=== PATIENT | female | born 1940 | race Asian ===

== ENCOUNTER 2018-08-12 15:13 | Inpatient (IN) | payer OTHER ==
[2018-08-12 15:45] LABS: ADD MAN DIFF? NO
[2018-08-12 15:52] LABS: WHITE BLOOD COUNT 9.8 10^3/ul (4.8-10.8)
[2018-08-12 15:52] LABS: BASOPHIL # 0.1 10^3/ul (0.0-0.1); BASOPHILS % 0.6 % (0.0-2.0); EOSINOPHILS # 0.1 10^3/ul (0.0-0.5); EOSINOPHILS % 0.8 % (0.0-7.0); HEMATOCRIT 37.6 % (37.0-47.0); HEMOGLOBIN 11.9 g/dl (12.0-16.0); LYMPHOCYTES # 0.8 10^3/ul (0.8-2.9); LYMPHOCYTES % 8.4 % (15.0-51.0); MEAN CORPUSCULAR HEMOGLOBIN 29.2 pg (29.0-33.0); MEAN CORPUSCULAR HGB CONC 31.6 g/dl (32.0-37.0); MEAN CORPUSCULAR VOLUME 92.4 fl (82.0-101.0); MEAN PLATELET VOLUME 9.9 fl (7.4-10.4); MONOCYTE # 0.7 10^3/ul (0.3-0.9); MONOCYTES % 6.8 % (0.0-11.0); NEUTROPHIL # 8.1 10^3/ul (1.6-7.5); NEUTROPHILS % 82.5 % (39.0-77.0); NUCLEATED RED BLOOD CELLS% 0.2 /100WBC (0.0-0.0); PLATELET COUNT 567 10^3/UL (140-415); RED BLOOD COUNT 4.07 10^6/ul (4.20-5.40); RED CELL DISTRIBUTION WIDTH 14.6 % (11.5-14.5)
[2018-08-12] MEDS: CEFEPIME 2GM/50 ML (PMX) 50 ML IVPB (15:52)
[2018-08-12] MEDS: SODIUM CHLORIDE 0.9% 1L BAG IV* (15:52)
[2018-08-12 16:05] LABS: ADD UMIC YES; UR ASCORBIC ACID NEGATIVE (NEGATIVE); UR BILIRUBIN (Dip) NEGATIVE (NEGATIVE); UR BLOOD (Dip) NEGATIVE (NEGATIVE); UR CLARITY CLOUDY (CLEAR); UR COLOR AMBER (YELLOW); UR GLUCOSE (Dip) NEGATIVE (NEGATIVE); UR HYALINE CAST FEW /HPF (NONE SEEN); UR KETONES (Dip) TRACE mg/dL (NEGATIVE); UR LEUKOCYTE ESTERASE (Dip) NEGATIVE Leu/ul (NEGATIVE); UR MUCUS FEW /HPF (NONE SEEN); UR NITRITE (Dip) NEGATIVE (NEGATIVE); UR RBC 2 /HPF (0-5); UR SPECIFIC GRAVITY (Dip) 1.021 (1.003-1.030); UR SQUAMOUS EPITHELIAL CELL FEW /HPF (FEW); UR TOTAL PROTEIN (Dip) NEGATIVE (NEGATIVE); UR UROBILINOGEN (Dip) 2+ mg/dL (NEGATIVE); UR WBC 6 /HPF (0-5)
[2018-08-12 16:08] LABS: ALANINE AMINOTRANSFERASE 34 IU/L (13-69); ALBUMIN 3.7 g/dl (3.3-4.9); ALBUMIN/GLOBULIN RATIO 0.92; ALKALINE PHOSPHATASE 96 IU/L (42-121); ANION GAP 12 (5-13); ASPARTATE AMINO TRANSFERASE 42 IU/L (15-46); BILIRUBIN,INDIRECT 0.3 mg/dl (0-1.1); BILIRUBIN,TOTAL 0.3 mg/dl (0.2-1.3); BLOOD UREA NITROGEN 41 mg/dl (7-20); CALCIUM 9.5 mg/dl (8.4-10.2); CARBON DIOXIDE 26 mmol/L (21-31); CHLORIDE 109 mmol/L (97-110); CREATININE 1.35 mg/dl (0.44-1.00); GLUCOSE 128 mg/dl (70-220); POTASSIUM 3.7 mmol/L (3.5-5.1); SODIUM 147 mmol/L (135-144); TOTAL PROTEIN 7.7 g/dl (6.1-8.1)
[2018-08-12 16:20] LABS: TROPONIN-I 0.078 ng/ml (0.000-0.120)
[2018-08-12] MEDS: VANCOMYCIN 1 GM (PMX) 250 ML IVPB (16:34)
[2018-08-12] MEDS ORDERED: NACL 0.9% 3 ML SYG IV (18:30)
[2018-08-12] MEDS ORDERED: ACETAMINOPHEN 325 MG TAB PO (19:00)
[2018-08-12] MEDS ORDERED: ONDANSETRON 4 MG INJ IV (19:00)
[2018-08-12 21:33] LABS: LACTIC ACID 1.1 mmol/L (0.5-2.0)
[2018-08-12] MEDS: GABAPENTIN 300 MG CAP PO (23:00)
[2018-08-12] MEDS: ATORVASTATIN 20 MG TAB PO (23:00)
[2018-08-12] MEDS ORDERED: IPRATROPIUM (NEB) 0.5 MG/2.5 ML AMP HHN (23:30)
[2018-08-12] MEDS ORDERED: LEVALBUTEROL (NEB) 1.25 MG/0.5 ML AMP HHN (23:30)
[2018-08-13 00:14] LABS: AADO2 Arterial 81.4 mmHg (7.0-24.0); Allen Test ACCEPTAB; Arterial Base Excess -2.1 mmol/L (-3.0-3); Arterial Blood Gas Oxygen Sat 92.9 mmHG (95.0-100.0); Arterial COHb 0 % (0.0-3.0); Arterial Fraction of Oxyhgb 92.9 % (93.0-99.0); Arterial MetHb 0 % (0.0-1.5); Arterial pCO2 35.2 mmhg (35-45); MODE NASAL CANNULA; Site Right Radial
[2018-08-13 05:32] LABS: ADD MAN DIFF? NO
[2018-08-13 05:37] LABS: BASOPHILS % 0.5 % (0.0-2.0); EOSINOPHILS # 0.4 10^3/ul (0.0-0.5); EOSINOPHILS % 4.8 % (0.0-7.0); HEMATOCRIT 31.2 % (37.0-47.0); HEMOGLOBIN 9.8 g/dl (12.0-16.0); LYMPHOCYTES # 1.2 10^3/ul (0.8-2.9); MEAN CORPUSCULAR HGB CONC 31.4 g/dl (32.0-37.0); MEAN CORPUSCULAR VOLUME 92.3 fl (82.0-101.0); MEAN PLATELET VOLUME 9.9 fl (7.4-10.4); MONOCYTE # 0.8 10^3/ul (0.3-0.9); MONOCYTES % 9.6 % (0.0-11.0); NEUTROPHIL # 5.5 10^3/ul (1.6-7.5); NEUTROPHILS % 69.5 % (39.0-77.0); PLATELET COUNT 482 10^3/UL (140-415); RED BLOOD COUNT 3.38 10^6/ul (4.20-5.40); RED CELL DISTRIBUTION WIDTH 14.7 % (11.5-14.5)
[2018-08-13 05:37] LABS: WHITE BLOOD COUNT 7.9 10^3/ul (4.8-10.8)
[2018-08-13 06:03] LABS: HEMOGLOBIN A1C 5.8 % (0-5.9)
[2018-08-13 06:17] LABS: ALANINE AMINOTRANSFERASE 30 IU/L (13-69); ALBUMIN 2.7 g/dl (3.3-4.9); ALBUMIN/GLOBULIN RATIO 0.84; ALKALINE PHOSPHATASE 67 IU/L (42-121); ANION GAP 7 (5-13); ASPARTATE AMINO TRANSFERASE 27 IU/L (15-46); BILIRUBIN,INDIRECT 0.2 mg/dl (0-1.1); BILIRUBIN,TOTAL 0.2 mg/dl (0.2-1.3); BLOOD UREA NITROGEN 32 mg/dl (7-20); CALCIUM 8.3 mg/dl (8.4-10.2); CARBON DIOXIDE 24 mmol/L (21-31); CHLORIDE 115 mmol/L (97-110); CREATININE 1.18 mg/dl (0.44-1.00); GLUCOSE 95 mg/dl (70-220); MAGNESIUM 1.9 mg/dl (1.7-2.5); PHOSPHORUS 4.5 mg/dl (2.5-4.9); POTASSIUM 3.4 mmol/L (3.5-5.1); SODIUM 146 mmol/L (135-144); TOTAL PROTEIN 5.9 g/dl (6.1-8.1)
[2018-08-13] MEDS: PANTOPRAZOLE (EC) 40 MG TAB PO (08:25)
[2018-08-13] MEDS: ASPIRIN (EC) 81 MG TAB PO (08:28)
[2018-08-13] MEDS: LABETALOL 100 MG TAB PO ×3 (08:29→21:44)
[2018-08-13] MEDS: GABAPENTIN 300 MG CAP PO ×2 (08:29→21:44)
[2018-08-13] MEDS: POTASSIUM CHLORIDE 20 MEQ POWDER FOR ORAL SOLN PO (09:50)
[2018-08-13] MEDS: ATORVASTATIN 20 MG TAB PO (21:44)
[2018-08-13] MEDS: ALPRAZOLAM 0.25 MG TAB PO (22:31)
[2018-08-14] MEDS: BENZONATATE 100 MG CAP PO ×2 (00:08→06:18)
[2018-08-14] MEDS: PANTOPRAZOLE (EC) 40 MG TAB PO (06:18)
[2018-08-14] MEDS: LABETALOL 100 MG TAB PO (09:00)
[2018-08-14] MEDS: ASPIRIN (EC) 81 MG TAB PO (09:52)
[2018-08-14] MEDS: GABAPENTIN 300 MG CAP PO ×2 (09:52→21:13)
[2018-08-14 10:04] LABS: ADD MAN DIFF? NO
[2018-08-14 10:05] LABS: BASOPHIL # 0.1 10^3/ul (0.0-0.1); BASOPHILS % 0.5 % (0.0-2.0); EOSINOPHILS # 0.4 10^3/ul (0.0-0.5); EOSINOPHILS % 4.4 % (0.0-7.0); HEMATOCRIT 30.7 % (37.0-47.0); HEMOGLOBIN 9.6 g/dl (12.0-16.0); LYMPHOCYTES # 1.2 10^3/ul (0.8-2.9); LYMPHOCYTES % 12.6 % (15.0-51.0); MEAN CORPUSCULAR HEMOGLOBIN 28.7 pg (29.0-33.0); MEAN CORPUSCULAR HGB CONC 31.3 g/dl (32.0-37.0); MEAN CORPUSCULAR VOLUME 91.6 fl (82.0-101.0); MEAN PLATELET VOLUME 9.7 fl (7.4-10.4); MONOCYTE # 0.9 10^3/ul (0.3-0.9); MONOCYTES % 9.4 % (0.0-11.0); NEUTROPHIL # 6.8 10^3/ul (1.6-7.5); NEUTROPHILS % 72.5 % (39.0-77.0); PLATELET COUNT 424 10^3/UL (140-415); RED BLOOD COUNT 3.35 10^6/ul (4.20-5.40); RED CELL DISTRIBUTION WIDTH 15.4 % (11.5-14.5)
[2018-08-14 10:05] LABS: WHITE BLOOD COUNT 9.4 10^3/ul (4.8-10.8)
[2018-08-14 10:29] LABS: ANION GAP 8 (5-13); BLOOD UREA NITROGEN 25 mg/dl (7-20); CALCIUM 8.6 mg/dl (8.4-10.2); CARBON DIOXIDE 21 mmol/L (21-31); CHLORIDE 113 mmol/L (97-110); CREATININE 1.56 mg/dl (0.44-1.00); GLUCOSE 138 mg/dl (70-220); POTASSIUM 3.6 mmol/L (3.5-5.1); SODIUM 142 mmol/L (135-144)
[2018-08-14 11:16] LABS: CREATINE KINASE 88 IU/L (23-200)
[2018-08-14] MEDS: CEFTRIAXONE 1 GM/50 ML (PMX) 50 ML IVPB (11:31)
[2018-08-14] MEDS: AZITHROMYCIN 500MG/NS (PMX) 250 ML IVPB (12:26)
[2018-08-14] MEDS: PIPER-TAZO 3.375 GM IV (PMX) 100 ML IVPB ×2 (15:45→21:16)
[2018-08-14] MEDS: ATORVASTATIN 20 MG TAB PO (21:13)
[2018-08-14] MEDS: ALPRAZOLAM 0.25 MG TAB PO (22:29)
[2018-08-14] MEDS: ACETAMINOPHEN 325 MG TAB PO (22:31)
[2018-08-15] MEDS: PIPER-TAZO 3.375 GM IV (PMX) 100 ML IVPB ×3 (05:54→21:41)
[2018-08-15] MEDS: PANTOPRAZOLE (EC) 40 MG TAB PO (05:54)
[2018-08-15] MEDS: BENZONATATE 100 MG CAP PO ×2 (05:58→14:36)
[2018-08-15 06:01] LABS: ADD MAN DIFF? NO
[2018-08-15 06:07] LABS: WHITE BLOOD COUNT 10.9 10^3/ul (4.8-10.8)
[2018-08-15 06:07] LABS: BASOPHILS % 0.3 % (0.0-2.0); EOSINOPHILS # 0.6 10^3/ul (0.0-0.5); EOSINOPHILS % 5.5 % (0.0-7.0); HEMATOCRIT 29.5 % (37.0-47.0); HEMOGLOBIN 9.4 g/dl (12.0-16.0); LYMPHOCYTES # 1.5 10^3/ul (0.8-2.9); LYMPHOCYTES % 13.9 % (15.0-51.0); MEAN CORPUSCULAR HEMOGLOBIN 29.6 pg (29.0-33.0); MEAN CORPUSCULAR HGB CONC 31.9 g/dl (32.0-37.0); MEAN CORPUSCULAR VOLUME 92.8 fl (82.0-101.0); MEAN PLATELET VOLUME 9.7 fl (7.4-10.4); MONOCYTES % 9.1 % (0.0-11.0); NEUTROPHIL # 7.7 10^3/ul (1.6-7.5); NEUTROPHILS % 70.4 % (39.0-77.0); PLATELET COUNT 430 10^3/UL (140-415); RED BLOOD COUNT 3.18 10^6/ul (4.20-5.40); RED CELL DISTRIBUTION WIDTH 15.3 % (11.5-14.5)
[2018-08-15 06:21] LABS: ANION GAP 8 (5-13); BLOOD UREA NITROGEN 23 mg/dl (7-20); CALCIUM 8.5 mg/dl (8.4-10.2); CARBON DIOXIDE 23 mmol/L (21-31); CHLORIDE 113 mmol/L (97-110); CREATININE 1.71 mg/dl (0.44-1.00); GLUCOSE 132 mg/dl (70-220); MAGNESIUM 1.9 mg/dl (1.7-2.5); POTASSIUM 4.1 mmol/L (3.5-5.1); SODIUM 144 mmol/L (135-144)
[2018-08-15] MEDS: ASPIRIN (EC) 81 MG TAB PO (08:31)
[2018-08-15] MEDS: GABAPENTIN 300 MG CAP PO ×2 (08:31→21:41)
[2018-08-15] MEDS: ENOXAPARIN 30 MG/0.3 ML SYG SC (08:33)
[2018-08-15] MEDS: METOPROLOL (XL) 25 MG TAB PO (09:52)
[2018-08-15 16:58] LABS: ADD UMIC NO; UR ASCORBIC ACID NEGATIVE (NEGATIVE); UR BILIRUBIN (Dip) NEGATIVE (NEGATIVE); UR BLOOD (Dip) NEGATIVE (NEGATIVE); UR CLARITY CLEAR (CLEAR); UR COLOR STRAW (YELLOW); UR GLUCOSE (Dip) NEGATIVE (NEGATIVE); UR KETONES (Dip) NEGATIVE (NEGATIVE); UR LEUKOCYTE ESTERASE (Dip) NEGATIVE Leu/ul (NEGATIVE); UR NITRITE (Dip) NEGATIVE (NEGATIVE); UR TOTAL PROTEIN (Dip) NEGATIVE (NEGATIVE); UR UROBILINOGEN (Dip) 0.2 E.U./dL mg/dL (NEGATIVE); URINE PH (Dip) 5 (5.0-9.0)
[2018-08-15 17:12] LABS: UR RBC 0 /HPF (0-5); UR WBC 0 /HPF (0-5)
[2018-08-15 17:18] LABS: CREATININE,URINE RANDOM 35.64 mg/dl (20-320)
[2018-08-15 17:18] LABS: SODIUM,URINE RANDOM 41 mmol/L (30-90)
[2018-08-15] MEDS: ATORVASTATIN 20 MG TAB PO (21:41)
[2018-08-15] MEDS: ALPRAZOLAM 0.25 MG TAB PO (21:42)
[2018-08-16 05:17] LABS: ADD MAN DIFF? NO
[2018-08-16 05:20] LABS: BASOPHIL # 0.1 10^3/ul (0.0-0.1); BASOPHILS % 0.5 % (0.0-2.0); EOSINOPHILS # 0.7 10^3/ul (0.0-0.5); EOSINOPHILS % 5.9 % (0.0-7.0); HEMATOCRIT 30.3 % (37.0-47.0); HEMOGLOBIN 9.5 g/dl (12.0-16.0); LYMPHOCYTES # 1.4 10^3/ul (0.8-2.9); LYMPHOCYTES % 12.1 % (15.0-51.0); MEAN CORPUSCULAR HGB CONC 31.4 g/dl (32.0-37.0); MEAN CORPUSCULAR VOLUME 92.4 fl (82.0-101.0); MEAN PLATELET VOLUME 9.5 fl (7.4-10.4); MONOCYTE # 0.8 10^3/ul (0.3-0.9); MONOCYTES % 7.4 % (0.0-11.0); NEUTROPHIL # 8.3 10^3/ul (1.6-7.5); NEUTROPHILS % 73.4 % (39.0-77.0); PLATELET COUNT 456 10^3/UL (140-415); RED BLOOD COUNT 3.28 10^6/ul (4.20-5.40); RED CELL DISTRIBUTION WIDTH 15.6 % (11.5-14.5)
[2018-08-16 05:20] LABS: WHITE BLOOD COUNT 11.4 10^3/ul (4.8-10.8)
[2018-08-16 05:52] LABS: ANION GAP 8 (5-13); BLOOD UREA NITROGEN 18 mg/dl (7-20); CALCIUM 8.5 mg/dl (8.4-10.2); CARBON DIOXIDE 21 mmol/L (21-31); CHLORIDE 114 mmol/L (97-110); CREATININE 1.53 mg/dl (0.44-1.00); GLUCOSE 133 mg/dl (70-220); POTASSIUM 4.1 mmol/L (3.5-5.1); SODIUM 143 mmol/L (135-144)
[2018-08-16] MEDS: PANTOPRAZOLE (EC) 40 MG TAB PO (05:52)
[2018-08-16] MEDS: PIPER-TAZO 3.375 GM IV (PMX) 100 ML IVPB ×3 (05:52→21:37)
[2018-08-16] MEDS: GABAPENTIN 300 MG CAP PO ×2 (08:59→21:37)
[2018-08-16] MEDS: ASPIRIN (EC) 81 MG TAB PO (08:59)
[2018-08-16] MEDS: METOPROLOL (XL) 25 MG TAB PO (09:00)
[2018-08-16] MEDS: HEPARIN 5,000 UNIT/1 ML VIAL SC ×2 (09:06→21:46)
[2018-08-16] MEDS: METHYLPREDNISOLONE 40 MG INJ IV ×2 (13:35→21:36)
[2018-08-16] MEDS: FUROSEMIDE 40 MG INJ IV (13:35)
[2018-08-16] MEDS: ATORVASTATIN 20 MG TAB PO (21:37)
[2018-08-16] MEDS: ALPRAZOLAM 0.25 MG TAB PO (21:39)
[2018-08-17 05:57] LABS: ADD MAN DIFF? NO
[2018-08-17 05:59] LABS: BASOPHILS % 0.2 % (0.0-2.0); EOSINOPHILS % 0.3 % (0.0-7.0); HEMATOCRIT 30.8 % (37.0-47.0); HEMOGLOBIN 10.1 g/dl (12.0-16.0); LYMPHOCYTES # 0.9 10^3/ul (0.8-2.9); LYMPHOCYTES % 8.3 % (15.0-51.0); MEAN CORPUSCULAR HEMOGLOBIN 29.5 pg (29.0-33.0); MEAN CORPUSCULAR HGB CONC 32.8 g/dl (32.0-37.0); MEAN CORPUSCULAR VOLUME 90.1 fl (82.0-101.0); MEAN PLATELET VOLUME 9.7 fl (7.4-10.4); MONOCYTE # 0.7 10^3/ul (0.3-0.9); MONOCYTES % 6.5 % (0.0-11.0); NEUTROPHIL # 8.5 10^3/ul (1.6-7.5); NEUTROPHILS % 83.6 % (39.0-77.0); PLATELET COUNT 492 10^3/UL (140-415); RED BLOOD COUNT 3.42 10^6/ul (4.20-5.40); RED CELL DISTRIBUTION WIDTH 15.4 % (11.5-14.5)
[2018-08-17 05:59] LABS: WHITE BLOOD COUNT 10.2 10^3/ul (4.8-10.8)
[2018-08-17] MEDS: METHYLPREDNISOLONE 40 MG INJ IV ×3 (06:22→21:59)
[2018-08-17] MEDS: PIPER-TAZO 3.375 GM IV (PMX) 100 ML IVPB ×3 (06:23→21:59)
[2018-08-17] MEDS: PANTOPRAZOLE (EC) 40 MG TAB PO (06:23)
[2018-08-17 06:48] LABS: ANION GAP 10 (5-13); BLOOD UREA NITROGEN 20 mg/dl (7-20); CALCIUM 8.5 mg/dl (8.4-10.2); CARBON DIOXIDE 24 mmol/L (21-31); CHLORIDE 109 mmol/L (97-110); CREATININE 1.53 mg/dl (0.44-1.00); GLUCOSE 124 mg/dl (70-220); POTASSIUM 4.1 mmol/L (3.5-5.1); SODIUM 143 mmol/L (135-144)
[2018-08-17] MEDS: GABAPENTIN 300 MG CAP PO ×2 (09:17→21:58)
[2018-08-17] MEDS: METOPROLOL (XL) 25 MG TAB PO (09:17)
[2018-08-17] MEDS: ASPIRIN (EC) 81 MG TAB PO (09:17)
[2018-08-17] MEDS: FUROSEMIDE 40 MG INJ IV (09:19)
[2018-08-17] MEDS: HEPARIN 5,000 UNIT/1 ML VIAL SC ×2 (09:22→22:00)
[2018-08-17] MEDS: BENZONATATE 100 MG CAP PO (09:28)
[2018-08-17] MEDS: ALPRAZOLAM 0.25 MG TAB PO (21:58)
[2018-08-17] MEDS: ATORVASTATIN 20 MG TAB PO (22:08)
[2018-08-18] MEDS: PIPER-TAZO 3.375 GM IV (PMX) 100 ML IVPB ×2 (05:55→14:13)
[2018-08-18] MEDS: METHYLPREDNISOLONE 40 MG INJ IV ×2 (05:55→14:13)
[2018-08-18] MEDS: PANTOPRAZOLE (EC) 40 MG TAB PO (05:55)
[2018-08-18] MEDS: METOPROLOL (XL) 25 MG TAB PO (08:52)
[2018-08-18] MEDS: ASPIRIN (EC) 81 MG TAB PO (08:53)
[2018-08-18] MEDS: FUROSEMIDE 40 MG INJ IV (08:53)
[2018-08-18] MEDS: GABAPENTIN 300 MG CAP PO (08:53)
[2018-08-18] MEDS: HEPARIN 5,000 UNIT/1 ML VIAL SC (09:01)
[2018-08-18] MEDS: AZITHROMYCIN 250 MG TAB PO (13:00)
[2018-08-18 14:06] LABS: CREATININE, RANDOM URINE 36 mg/dL (20-275); MICROALBUMIN 0.8 mg/dL; MICROALBUMIN/CREATININE RATIO 22 (<30)
[2018-08-19 14:02] LABS: MYELOPEROXIDASE ANTIBODY <1.0 AI; PROTEINASE-3 ANTIBODY <1.0 AI
[2018-08-20 13:27] LABS: NIL 0.01 IU/mL; QUANTIFERON(R)-TB GOLD NEGATIVE (NEGATIVE)
== END 2018-08-18 19:45 | DRG 871 ==
LOC: E/R 15:13 → 2NE 21:06
DX: A41.9 Sepsis, unspecified organism (principal); J18.9 Pneumonia, unspecified organism; J96.01 Acute respiratory failure with hypoxia; N39.0 Urinary tract infection, site not specified; N17.9 Acute kidney failure, unspecified; I12.9 Hypertensive chronic kidney disease with stage 1 through stage 4 chronic kidney disease, or unspecified chronic kidney disease; N18.9 Chronic kidney disease, unspecified; I27.20 Pulmonary hypertension, unspecified
CPT/HCPCS: 36415; 36600; 71045; 71250; 76775; 80048; 80053; 81001; 81003; 82043; 82550; 82803; 82962; 83036; 83605; 83735; 84100; 84155; 84300; 84484; 85025; 86021; 86480; 86606; 86635; 87040; 87086; 87400; 92610; 93005; 93306; 96365; 96366; 96375; 97116; 97162; 97530; 99291-25